=== PATIENT | female | born 1970 | race Asian ===

== ENCOUNTER 2021-07-08 22:12 | Outpatient (CLI) | payer OTHER, MEDICAID | END 2021-07-08 22:13 | disposition critical access hospital (66) | LOC: EMS 22:12 | DX: R10.9 Unspecified abdominal pain (principal); R07.9 Chest pain, unspecified; M54.2 Cervicalgia; Y00.XXXA Assault by blunt object, initial encounter; Y92.009 Unspecified place in unspecified non-institutional (private) residence as the place of occurrence of the external cause | CPT/HCPCS: A0425; A0429 ==

== ENCOUNTER 2021-07-08 22:30 | Emergency (ER) | payer OTHER, MEDICAID ==
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
[2021-07-09 02:01] VITALS: BP 127/85
[2021-07-09] MEDS ORDERED: ACETAMINOPHEN 325 MG TABLET PO STA (02:04)
[2021-07-09] MEDS ORDERED: KETOROLAC 60 MG/2 ML VIAL IM STA (02:47)
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
== END 2021-07-09 03:12 | disposition home or self-care (01) ==
LOC: ED 22:30
DX: S06.0X0A Concussion without loss of consciousness, initial encounter (principal); S16.1XXA Strain of muscle, fascia and tendon at neck level, initial encounter; S00.03XA Contusion of scalp, initial encounter; M54.6 Pain in thoracic spine; Y04.2XXA Assault by strike against or bumped into by another person, initial encounter; Y92.007 Garden or yard of unspecified non-institutional (private) residence as the place of occurrence of the external cause; M50.322 Other cervical disc degeneration at C5-C6 level; M51.36 Other intervertebral disc degeneration, lumbar region
CPT/HCPCS: 70450; 72072; 72100; 72125; 96372; 99284; A9270